=== PATIENT | female | born 2000 | race Caucasian/White ===

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

== ENCOUNTER 2022-02-27 12:11 | Emergency (ER) | payer OTHER ==
[~2022-02-27] VITALS: Ht 167.6 cm; Wt 49.9 kg
[2022-02-27 13:05] LABS: BASO % 0.2 % (0.0-1.0); HEMATOCRIT 43.6 % (37.0-47.0); LYMPH # 1.6 10*3/uL (1.3-4.4); LYMPH % 17.2 % (27.0-41.0); MEAN CELL VOLUME 86.2 fl (81.0-99.0); MEAN CORPUSCULAR HGB 30.2 pg (27.0-31.0); MEAN CORPUSCULAR HGB CONC 35.1 g/dl (33.0-37.0); MEAN PLATELET VOLUME 9.1 fl (9.6-12.3); MONO # 0.4 10*3/uL (0.1-1.0); NEUT # 7.2 10*3/uL (2.3-7.9); NEUT % 78.3 % (47.0-73.0); PLATELET COUNT AUTOMATED 447 10*3/uL (130-400); RED BLOOD COUNT 5.06 10*6/uL (4.10-5.10); RED CELL DISTRI WIDTH 11.8 % (0-14.5); WHITE BLOOD COUNT 9.2 10*3/uL (4.8-10.8)
[2022-02-27 13:20] LABS: ALKALINE PHOSPHATASE 76 U/L (46-116); BUN 12 mg/dl (9-23); CHLORIDE 101 mmol/L (98-107); LIPASE 26 U/L (12-53); POTASSIUM 3.1 mmol/L (3.4-5.1); SGPT/ALT 8 U/L (10-49); TOTAL PROTEIN 8.1 gm/dL (6.0-8.0)
[2022-02-27] MEDS ORDERED: Phenergan25 MG PO (15:02)
== END 2022-02-27 15:10 | disposition home or self-care (01) ==
LOC: ED 12:11
PROVIDERS: Nurse Practitioner Family
DX: R11.15 Cyclical vomiting syndrome unrelated to migraine (principal); Z79.899 Other long term (current) drug therapy

== ENCOUNTER 2022-04-12 22:16 | Emergency (ER) | payer OTHER ==
[~2022-04-12] VITALS: Ht 172.7 cm; Wt 56.7 kg
[~2022-04-12 22:16] MED LIST changes: +Phenergan25 MG PO
[2022-04-12 22:42] LABS: BASO % 0.1 % (0.0-1.0); HEMATOCRIT 41.7 % (37.0-47.0); LYMPH # 0.8 10*3/uL (1.3-4.4); LYMPH % 8.7 % (27.0-41.0); MEAN CELL VOLUME 88.2 fl (81.0-99.0); MEAN CORPUSCULAR HGB 30.7 pg (27.0-31.0); MEAN CORPUSCULAR HGB CONC 34.8 g/dl (33.0-37.0); MONO # 0.2 10*3/uL (0.1-1.0); MONO % 2.5 % (3.0-9.0); NEUT % 88.6 % (47.0-73.0); PLATELET COUNT AUTOMATED 400 10*3/uL (130-400); RED BLOOD COUNT 4.73 10*6/uL (4.10-5.10); RED CELL DISTRI WIDTH 11.9 % (0-14.5); WHITE BLOOD COUNT 9.1 10*3/uL (4.8-10.8)
[2022-04-12 23:02] LABS: ALKALINE PHOSPHATASE 73 U/L (46-116); BUN 14 mg/dl (9-23); CHLORIDE 105 mmol/L (98-107); LIPASE 23 U/L (12-53); POTASSIUM 3.8 mmol/L (3.4-5.1); SGPT/ALT 9 U/L (10-49); TOTAL PROTEIN 7.8 gm/dL (6.0-8.0)
[2022-04-12] MEDS ORDERED: PHENERGAN25 M3 PO (23:06)
== END 2022-04-13 01:09 | disposition home or self-care (01) ==
LOC: ED 22:16
PROVIDERS: Emergency Medicine
DX: R11.2 Nausea with vomiting, unspecified (principal); F32.A Depression, unspecified

== ENCOUNTER → 2022-04-14 | Emergency (ER) | payer OTHER ==
[~2022-04-14] VITALS: Wt 56.7 kg
== END ==
LOC: ED 18:19
DX: R11.2 Nausea with vomiting, unspecified (principal)

== ENCOUNTER 2022-06-15 05:14 | Emergency (ER) | payer OTHER ==
[~2022-06-15] VITALS: Ht 165.1 cm; Wt 51.3 kg
[2022-06-15 06:02] LABS: BASO % 0.1 % (0.0-1.0); LYMPH # 1.1 10*3/uL (1.3-4.4); LYMPH % 10.5 % (27.0-41.0); MEAN CELL VOLUME 85.3 fl (81.0-99.0); MEAN CORPUSCULAR HGB 30.2 pg (27.0-31.0); MEAN CORPUSCULAR HGB CONC 35.3 g/dl (33.0-37.0); MEAN PLATELET VOLUME 9.1 fl (9.6-12.3); MONO # 0.7 10*3/uL (0.1-1.0); NEUT # 8.4 10*3/uL (2.3-7.9); NEUT % 80.7 % (47.0-73.0); PLATELET COUNT AUTOMATED 430 10*3/uL (130-400); RED BLOOD COUNT 5.04 10*6/uL (4.10-5.10); RED CELL DISTRI WIDTH 12.2 % (0-14.5); WHITE BLOOD COUNT 10.4 10*3/uL (4.8-10.8)
[2022-06-15 06:11] LABS: ALKALINE PHOSPHATASE 72 U/L (46-116); BUN 11 mg/dl (9-23); CHLORIDE 107 mmol/L (98-107); POTASSIUM 3.4 mmol/L (3.4-5.1); SGPT/ALT 10 U/L (10-49); TOTAL PROTEIN 8.1 gm/dL (6.0-8.0)
[2022-06-15 07:37] LABS: BILIRUBIN Negative (Negative); BLOOD 2+ (Negative); CLARITY Turbid (Clear); COLOR Dark Yellow (Yellow); GLUCOSE Negative (Negative); KETONE 3+ (Negative); LEUKO ESTERASE 1+ (Negative); NITRITE Negative (Negative); PH 5.5 (4.5-8.0); SPECIFIC GRAVITY >= 1.030 (1.001-1.030)
[2022-06-15 08:03] LABS: BACTERIA 4+; EPITHELIAL CELLS 21-30; RBC 16-20 rbc/hpf (0-2)
[2022-06-15] MEDS ORDERED: ONDANSETRON4 MG SL (08:17)
[2022-06-15] MEDS ORDERED: MACROBID100 M1 PO (08:17)
== END 2022-06-15 08:30 | disposition home or self-care (01) ==
LOC: ED 05:14
PROVIDERS: Internal Medicine
DX: R11.15 Cyclical vomiting syndrome unrelated to migraine (principal); N39.0 Urinary tract infection, site not specified; R11.0 Nausea; F32.A Depression, unspecified

== ENCOUNTER 2022-06-16 18:48 | Emergency (ER) | payer OTHER ==
[~2022-06-16] VITALS: Ht 165.1 cm; Wt 51.3 kg
[~2022-06-16 18:48] MED LIST changes: +MACROBID100 M1 PO; +ONDANSETRON4 MG SL
[2022-06-16 19:42] LABS: BASO % 0.1 % (0.0-1.0); HEMATOCRIT 42.5 % (37.0-47.0); LYMPH # 1.5 10*3/uL (1.3-4.4); LYMPH % 11.3 % (27.0-41.0); MEAN CORPUSCULAR HGB 30.4 pg (27.0-31.0); MEAN CORPUSCULAR HGB CONC 35.3 g/dl (33.0-37.0); MEAN PLATELET VOLUME 8.8 fl (9.6-12.3); MONO # 0.7 10*3/uL (0.1-1.0); NEUT # 11.2 10*3/uL (2.3-7.9); NEUT % 83.3 % (47.0-73.0); PLATELET COUNT AUTOMATED 412 10*3/uL (130-400); RED BLOOD COUNT 4.94 10*6/uL (4.10-5.10); RED CELL DISTRI WIDTH 11.9 % (0-14.5); WHITE BLOOD COUNT 13.5 10*3/uL (4.8-10.8)
[2022-06-16 20:05] LABS: ALKALINE PHOSPHATASE 72 U/L (46-116); BUN 14 mg/dl (9-23); CHLORIDE 102 mmol/L (98-107); SGPT/ALT 9 U/L (10-49); TOTAL PROTEIN 7.8 gm/dL (6.0-8.0)
== END 2022-06-16 20:44 | disposition home or self-care (01) ==
LOC: ED 18:48
PROVIDERS: Student in an Organized Health Care Education/Training Program
DX: R11.15 Cyclical vomiting syndrome unrelated to migraine (principal); Z79.899 Other long term (current) drug therapy

== ENCOUNTER 2022-12-09 08:09 | Emergency (ER) | payer OTHER ==
[~2022-12-09] VITALS: Ht 167.6 cm; Wt 56.7 kg
[2022-12-09] MEDS ORDERED: MEDROXYPRO150 MG/1 M IM (08:20)
[2022-12-09 08:57] LABS: BASO % 0.3 % (0.0-1.0); HEMATOCRIT 41.9 % (37.0-47.0); LYMPH # 1.5 10*3/uL (1.3-4.4); LYMPH % 12.7 % (27.0-41.0); MEAN CELL VOLUME 87.8 fl (81.0-99.0); MEAN CORPUSCULAR HGB 30.4 pg (27.0-31.0); MEAN CORPUSCULAR HGB CONC 34.6 g/dl (33.0-37.0); MEAN PLATELET VOLUME 8.9 fl (9.6-12.3); MONO % 8.2 % (3.0-9.0); NEUT # 9.2 10*3/uL (2.3-7.9); NEUT % 78.5 % (47.0-73.0); PLATELET COUNT AUTOMATED 400 10*3/uL (130-400); RED BLOOD COUNT 4.77 10*6/uL (4.10-5.10); RED CELL DISTRI WIDTH 12.2 % (0-14.5); WHITE BLOOD COUNT 11.7 10*3/uL (4.8-10.8)
[2022-12-09 09:18] LABS: ALKALINE PHOSPHATASE 65 U/L (46-116); BUN 11 mg/dl (9-23); CHLORIDE 106 mmol/L (98-107); LIPASE 27 U/L (12-53); POTASSIUM 3.8 mmol/L (3.4-5.1); SGPT/ALT 10 U/L (5-49); TOTAL PROTEIN 7.7 gm/dL (6.0-8.0)
[2022-12-09 10:26] LABS: BILIRUBIN Negative (Negative); BLOOD Negative (Negative); CLARITY Cloudy (Clear); COLOR Yellow (Yellow); GLUCOSE Negative (Negative); KETONE 4+ (Negative); LEUKO ESTERASE Negative (Negative); NITRITE Negative (Negative); SPECIFIC GRAVITY >= 1.030 (1.001-1.030)
[2022-12-09 10:30] LABS: URINE AMPHETAMINES Negative (1000ng/ml); URINE BARBITURATES Negative (200ng/ml); URINE BENZODIAZEPINES Negative (200ng/ml); URINE CANNABINOIDS (THC) Positive (50ng/ml); URINE COCAINE Negative (300ng/ml); URINE METHADONE Negative (300ng/ml); URINE OPIATES Negative (300ng/ml); URINE PHENCYCLIDINE Negative (25ng/ml)
[2022-12-09 10:49] LABS: BACTERIA 3+; EPITHELIAL CELLS 21-30; MUCOUS 2+
[2022-12-09] MEDS ORDERED: ONDANSETRON4 MG SL (11:34)
[2022-12-09] MEDS ORDERED: CEFDINIR300 MG PO (11:38)
== END 2022-12-09 12:16 | disposition home or self-care (01) ==
LOC: ED 08:09
PROVIDERS: Family Medicine; Student in an Organized Health Care Education/Training Program
DX: R11.2 Nausea with vomiting, unspecified (principal); N39.0 Urinary tract infection, site not specified; R63.0 Anorexia; T50.995A Adverse effect of other drugs, medicaments and biological substances, initial encounter; F32.A Depression, unspecified; Z79.899 Other long term (current) drug therapy; Y92.89 Other specified places as the place of occurrence of the external cause

== ENCOUNTER 2023-09-19 20:37 | Emergency (ER) | payer OTHER ==
[~2023-09-19] VITALS: Ht 167.6 cm; Wt 56.7 kg
[~2023-09-19 20:37] MED LIST changes: +CEFDINIR300 MG PO; +MEDROXYPRO150 MG/1 M IM
[2023-09-19] MEDS ORDERED: SODIUM CHLORIDE 0.9% 1,000 ML IV ONE (21:05)
[2023-09-19] MEDS ORDERED: Ketorolac Tromethamine 30 MG/ML VIAL IV ONE (21:05)
[2023-09-19] MEDS ORDERED: Ondansetron Hydrochloride 4 MG/2 ML VIAL IV ONE (21:05)
[2023-09-19] MEDS ORDERED: diphenhydrAMINE hydrochloride 50 MG/ML VIAL IV ONE (21:05)
== END 2023-09-19 22:39 | disposition home or self-care (01) ==
LOC: ED 20:37
DX: R51.9 Headache, unspecified (principal); R11.2 Nausea with vomiting, unspecified; F32.A Depression, unspecified

== ENCOUNTER → 2023-09-29 | Outpatient (CLI) | payer OTHER | END | disposition home or self-care (01) | LOC: LAB 13:51 | PROVIDERS: ATTEND Family Medicine | DX: D64.9 Anemia, unspecified (principal) ==

== ENCOUNTER 2024-05-14 12:28 | Emergency (ER) | payer OTHER ==
[~2024-05-14] VITALS: Ht 167.6 cm; Wt 54.4 kg
[2024-05-14] MEDS ORDERED: diphenhydrAMINE hydrochloride 50 MG/ML VIAL IV ONE (13:35)
[2024-05-14] MEDS ORDERED: Metoclopramide Hydrochloride 10 MG/2 ML VIAL IV ONE (13:35)
[2024-05-14] MEDS ORDERED: SODIUM CHLORIDE 0.9% 1,000 ML IV ONE (13:35)
[2024-05-14] MEDS ORDERED: Ketorolac Tromethamine 30 MG/ML VIAL IV ONE (13:35)
[2024-05-14 13:45] LABS: BASO % 0.3 % (0.0-1.0); EOS % 0.4 % (1.0-4.0); HEMATOCRIT 44.8 % (37.0-47.0); MEAN CELL VOLUME 89.1 fl (81.0-99.0); MEAN CORPUSCULAR HGB 30.2 pg (27.0-31.0); MEAN CORPUSCULAR HGB CONC 33.9 g/dl (33.0-37.0); MEAN PLATELET VOLUME 8.9 fl (9.6-12.3); MONO # 0.8 10*3/uL (0.1-1.0); NEUT # 7.4 10*3/uL (2.3-7.9); NEUT % 70.1 % (47.0-73.0); PLATELET COUNT AUTOMATED 434 10*3/uL (130-400); RED BLOOD COUNT 5.03 10*6/uL (4.10-5.10); RED CELL DISTRI WIDTH 12.3 % (0-14.5); WHITE BLOOD COUNT 10.5 10*3/uL (4.8-10.8)
[2024-05-14 14:09] LABS: ALKALINE PHOSPHATASE 73 U/L (46-116); BUN 13 mg/dl (9-23); CHLORIDE 101 mmol/L (98-107); LIPASE 26 U/L (12-53); POTASSIUM 2.9 mmol/L (3.4-5.1); SGPT/ALT 8 U/L (5-49); TOTAL PROTEIN 8.1 gm/dL (6.0-8.0)
[2024-05-14] MEDS ORDERED: POTASSIUM CHLORIDE 20 MEQ TAB PO ONE (14:15)
[2024-05-14 15:20] LABS: BILIRUBIN 2+ (Negative); BLOOD Negative (Negative); CLARITY Turbid (Clear); COLOR Orange (Yellow); GLUCOSE Negative (Negative); KETONE 1+ (Negative); LEUKO ESTERASE 2+ (Negative); NITRITE Negative (Negative); PH 5.5 (4.5-8.0); SPECIFIC GRAVITY >= 1.030 (1.001-1.030)
[2024-05-14 15:35] LABS: CALCIUM OXALATE CRYSTALS 1+; WBC 16-20 wbc/hpf (0-5)
[2024-05-14] MEDS ORDERED: Ondansetron4 MG PO (15:40)
[2024-05-14] MEDS ORDERED: MACROBID100 M1 PO (15:40)
== END 2024-05-14 15:47 | disposition home or self-care (01) ==
LOC: ED 12:28
PROVIDERS: Physician Assistant Medical
DX: R10.9 Unspecified abdominal pain (principal); T38.5X5A Adverse effect of other estrogens and progestogens, initial encounter; E87.6 Hypokalemia; N39.0 Urinary tract infection, site not specified; Z87.42 Personal history of other diseases of the female genital tract; Y92.89 Other specified places as the place of occurrence of the external cause

== ENCOUNTER 2024-10-02 09:37 | Emergency (ER) | payer OTHER ==
[~2024-10-02] VITALS: Ht 167.6 cm; Wt 56.7 kg
[~2024-10-02 09:37] MED LIST changes: +Ondansetron4 MG PO
[2024-10-02] MEDS ORDERED: SODIUM CHLORIDE 0.9% 1,000 ML IV ONE (10:10)
[2024-10-02] MEDS ORDERED: Metoclopramide Hydrochloride 10 MG/2 ML VIAL IV ONE (10:10)
[2024-10-02] MEDS ORDERED: diphenhydrAMINE hydrochloride 50 MG/ML VIAL IV ONE (10:10)
[2024-10-02] MEDS ORDERED: Ondansetron Hydrochloride 4 MG/2 ML VIAL IV ONE (10:10)
[2024-10-02] MEDS ORDERED: IOHEXOL 300 MG/ML 100 ML VIAL IV ONE (10:25)
[2024-10-02 10:35] LABS: BASO # 0.1 10*3/uL (0.0-0.1); BASO % 0.4 % (0.0-1.0); EOS # 0.2 10*3/uL (0.0-0.4); EOS % 1.2 % (1.0-4.0); MEAN CELL VOLUME 90.2 fl (81.0-99.0); MEAN CORPUSCULAR HGB 30.1 pg (27.0-31.0); MEAN PLATELET VOLUME 8.6 fl (9.6-12.3); MONO # 0.8 10*3/uL (0.1-1.0); MONO % 6.1 % (3.0-9.0); NEUT # 10.3 10*3/uL (2.3-7.9); NEUT % 74.8 % (47.0-73.0); NUCLEATED RED BLOOD CELL 0.0 % (0.0-0.0); NUCLEATED RED BLOOD CELL 0.0 10*3/uL (0.0-0.0); PLATELET COUNT AUTOMATED 383 10*3/uL (130-400); RED CELL DISTRI WIDTH 12.0 % (0-14.5)
[2024-10-02 10:41] LABS: BILIRUBIN Negative (Negative); BLOOD Negative (Negative); CLARITY Cloudy (Clear); COLOR Yellow (Yellow); KETONE Trace (Negative); LEUKO ESTERASE 1+ (Negative); NITRITE Negative (Negative); PH 6.0 (4.5-8.0); SPECIFIC GRAVITY 1.025 (1.001-1.030); UROBILINOGEN 1.0 E.U./dl (0.0-1.0)
[2024-10-02 10:49] LABS: URINE AMPHETAMINES Negative (1000ng/ml); URINE BARBITURATES Negative (200ng/ml); URINE BENZODIAZEPINES Negative (200ng/ml); URINE CANNABINOIDS (THC) Positive (50ng/ml); URINE COCAINE Negative (300ng/ml); URINE METHADONE Negative (300ng/ml); URINE OPIATES Negative (300ng/ml); URINE PHENCYCLIDINE Negative (25ng/ml)
[2024-10-02 11:01] LABS: EPITHELIAL CELLS TNTC; WBC 16-20 wbc/hpf (0-5)
[2024-10-02 11:04] LABS: BACTERIA 2+; YEAST TRACE
[2024-10-02 11:06] LABS: BUN 12 mg/dl (9-23); SGPT/ALT 9 U/L (5-49)
[2024-10-02] MEDS ORDERED: HYDROmorphONE Hydrochloride 0.5 MG/0.5 ML SYRINGE IV ONE (11:20)
[2024-10-02] MEDS ORDERED: Ondansetron4 MG PO (13:02)
[2024-10-02] MEDS ORDERED: MACROBID100 M1 PO (13:02)
[2024-10-02] MEDS ORDERED: REGLAN10 M1 PO (13:02)
== END 2024-10-02 13:15 | disposition home or self-care (01) ==
LOC: ED 09:37
PROVIDERS: Emergency Medicine
DX: R10.84 Generalized abdominal pain (principal); F14.10 Cocaine abuse, uncomplicated; K52.9 Noninfective gastroenteritis and colitis, unspecified; R11.15 Cyclical vomiting syndrome unrelated to migraine; N39.0 Urinary tract infection, site not specified; F32.A Depression, unspecified

== ENCOUNTER 2025-01-19 18:50 | Emergency (ER) | payer OTHER ==
[~2025-01-19] VITALS: Wt 59.0 kg
[~2025-01-19 18:50] MED LIST changes: +REGLAN10 M1 PO
== END 2025-01-19 20:55 | disposition home or self-care (01) ==
LOC: ED 18:50
DX: S63.610A Unspecified sprain of right index finger, initial encounter (principal); F32.A Depression, unspecified; Z87.440 Personal history of urinary (tract) infections; W01.0XXA Fall on same level from slipping, tripping and stumbling without subsequent striking against object, initial encounter; Y93.89 Activity, other specified; Y92.89 Other specified places as the place of occurrence of the external cause; Y99.8 Other external cause status